=== PATIENT | male | born 1965 | race Two or more races ===

== ENCOUNTER 2022-09-06 11:30 | Inpatient (IN) | payer OTHER ==
[~2022-09-06] VITALS: Ht 152.4 cm; Wt 84.8 kg
[2022-09-06] MEDS ORDERED: LOSARTAN-HCTZ1 EAC2 PO (13:49)
[2022-09-06] MEDS ORDERED: ATORVASTATIN CA20 MG PO (13:49)
[2022-09-06] MEDS ORDERED: CLONAZEPAM0.5 MG PO (13:50)
[2022-09-06] MEDS ORDERED: CARVEDILOL25 M1 PO (13:50)
[2022-09-06] MEDS ORDERED: NORVASC5 MG PO (13:50)
[2022-09-06] MEDS ORDERED: PREVACID30 MG PO (13:51)
== END 2022-09-15 09:56 | disposition home or self-care (01) | DRG 331 ==
LOC: O/R 09-12 05:20 → SURH 09-12 10:56 → SURG 09-12 11:30 → SURH 09-15 09:56
PROVIDERS: ADMIT Colon & Rectal Surgery; ATTEND Colon & Rectal Surgery
PROC: 0DBP4ZZ Excision of Rectum, Percutaneous Endoscopic Approach (ICD-10-PCS; 2022-09-12)
PROC: 0DJD8ZZ Inspection of Lower Intestinal Tract, Via Natural or Artificial Opening Endoscopic (ICD-10-PCS; 2022-09-12)
PROC: 0DTN4ZZ Resection of Sigmoid Colon, Percutaneous Endoscopic Approach (ICD-10-PCS; principal; 2022-09-12 14:15)
DX: K57.32 Diverticulitis of large intestine without perforation or abscess without bleeding (principal); Z20.822 Contact with and (suspected) exposure to COVID-19

== ENCOUNTER 2022-09-16 00:05 | Emergency (ER) | payer OTHER ==
[~2022-09-16] VITALS: Ht 162.6 cm; Wt 80.7 kg
[~2022-09-16 00:05] MED LIST: ATORVASTATIN CA20 MG PO; CARVEDILOL25 M1 PO; CLONAZEPAM0.5 MG PO; LOSARTAN-HCTZ1 EAC2 PO; NORVASC5 MG PO; PREVACID30 MG PO
== END 2022-09-16 12:31 | disposition home or self-care (01) ==
LOC: ER 00:05
DX: K29.00 Acute gastritis without bleeding (principal); R10.9 Unspecified abdominal pain; Z98.890 Other specified postprocedural states; Z88.6 Allergy status to analgesic agent